=== PATIENT | male | born 1955 | race Caucasian/White ===

== ENCOUNTER 2023-11-11 17:32 | Outpatient (RCR) | payer BC, SELFPAY | END 2023-11-11 23:59 | disposition home or self-care (01) | LOC: CRHB 17:32 | PROVIDERS: ATTENDING PHYSICIAN Internal Medicine | DX: I25.10 Atherosclerotic heart disease of native coronary artery without angina pectoris (principal); Z95.1 Presence of aortocoronary bypass graft; I50.22 Chronic systolic (congestive) heart failure | CPT/HCPCS: 93797; 93798 ==

== ENCOUNTER 2023-11-16 17:05 | Outpatient (RCR) | payer BC, SELFPAY | END 2023-11-16 23:59 | disposition home or self-care (01) | LOC: CRHB 17:05 | PROVIDERS: ATTENDING PHYSICIAN Internal Medicine | DX: I25.10 Atherosclerotic heart disease of native coronary artery without angina pectoris (principal); Z95.1 Presence of aortocoronary bypass graft | CPT/HCPCS: 93797; 93798 ==